=== PATIENT | male | born 1970 | race Caucasian/White ===

== ENCOUNTER 2020-07-09 12:36 | Emergency (ER) | payer OTHER ==
--- NOTE | 2020-07-09 13:32 | ER Document Report ---
ED Medical Screen (RME) - General Chief Complaint: Anxiety Stated Complaint: POSSIBLE PANIC/ANXIETY ATTACK Time Seen by Provider: 07/09/20 13:25 Information source: Patient Notes: Patient states that he woke up around 830 with a chest heaviness. Patient states he has had 2 episodes of lightheadedness throughout the day. Patient denies any nausea vomiting cough or cold symptoms. Patient denies any shortness of breath. Patient does have a history of anxiety although states that the symptoms seem more profound and he wanted to be certain he was not having any cardiac event. I have greeted and performed a rapid initial assessment of this patient. A comprehensive ED assessment and evaluation of the patient, analysis of test results and completion of the medical decision making process will be conducted by additional ED providers. Physical Exam - Vital signs Vitals: Temp Pulse Resp BP Pulse Ox 98.1 F 90 20 147/88 H 97 07/09/20 12:42 07/09/20 12:42 07/09/20 12:42 07/09/20 12:42 07/09/20 12:42 - Respiratory Respiratory status: No respiratory distress Breath sounds: Normal - Cardiovascular Rhythm: Regular Heart sounds: S1 appreciated, S2 appreciated Course - Vital Signs Vital signs: Temp Pulse Resp BP Pulse Ox 98.1 F 90 20 147/88 H 97 07/09/20 12:42 07/09/20 12:42 07/09/20 12:42 07/09/20 12:42 07/09/20 12:42
--- NOTE | 2020-07-09 14:15 | RADIOLOGY REPORT (SQ) ---
EXAM DESCRIPTION: CHEST SINGLE VIEW IMAGES COMPLETED DATE/TIME: 07/09/2020 11:07 am REASON FOR STUDY: chest heaviness COMPARISON: None. EXAM PARAMETERS: NUMBER OF VIEWS: One view. TECHNIQUE: Single frontal radiographic view of the chest acquired. RADIATION DOSE: NA LIMITATIONS: None. FINDINGS: LUNGS AND PLEURA: No opacities, masses or pneumothorax. No pleural effusion. MEDIASTINUM AND HILAR STRUCTURES: No masses. Contour normal. HEART AND VASCULAR STRUCTURES: Heart normal in size. Normal vasculature. BONES: No acute findings. HARDWARE: None in the chest. OTHER: No other significant finding. IMPRESSION: NO ACUTE RADIOGRAPHIC FINDING IN THE CHEST. TECHNICAL DOCUMENTATION: JOB ID: [id number] 2010 [employer]- All Rights Reserved Reading location - IP/workstation name: [email or web address]
[2020-07-09 14:34] LABS: ABSOLUTE EOSINOPHILS # (AUTO) 0.1 10^3/uL (0.0-0.6); ABSOLUTE LYMPHOCYTES (AUTO) 1.3 10^3/uL (0.5-4.7); ABSOLUTE MONOCYTES (AUTO) 0.7 10^3/uL (0.1-1.4); ABSOLUTE NEUT (AUTO) 5.2 10^3/uL (1.7-8.2); BASOPHILS % (AUTO) 0.4 % (0-2); EOSINOPHILS % (AUTO) 1.2 % (0-6); HEMOGLOBIN 18.4 g/dL (13.5-17.0); LYMPHOCYTES % (AUTO) 18.2 % (13-45); MEAN CORPUSCULAR HEMOGLOBIN 31.2 pg (27.0-33.4); MEAN CORPUSCULAR HGB CONC 34.1 g/dL (32.0-36.0); MEAN CORPUSCULAR VOLUME 92 fl (80-97); MONOCYTES % (AUTO) 9.1 % (3-13); PLATELET COUNT 227 10^3/uL (150-450); RED BLOOD COUNT 5.89 10^6/uL (4.35-5.55); RED CELL DISTRIBUTION WIDTH 13.6 % (11.5-14.0); SEGMENTED NEUTROPHILS % (AUTO) 71.1 % (42-78); TOTAL CELLS COUNTED % (AUTO) 100 %; WHITE BLOOD COUNT 7.2 10^3/uL (4.0-10.5)
[2020-07-09 14:48] LABS: ALBUMIN 4.6 g/dL (3.5-5.0); ALKALINE PHOSPHATASE 67 U/L (38-126); ANION GAP 10 (5-19); ASPARTATE AMINO TRANSFERASE 75 U/L (17-59); BILIRUBIN,DIRECT 0.1 mg/dL (0.0-0.4); BILIRUBIN,TOTAL 0.8 mg/dL (0.2-1.3); BLOOD UREA NITROGEN 10 mg/dL (7-20); CALCIUM 10.3 mg/dL (8.4-10.2); CARBON DIOXIDE 27 mmol/L (22-30); CHLORIDE 103 mmol/L (98-107); GLUCOSE 94 mg/dL (75-110); POTASSIUM 4.8 mmol/L (3.6-5.0); TOTAL PROTEIN 7.7 g/dL (6.3-8.2)
--- NOTE | 2020-07-09 17:15 | ER Document Report ---
ED Cardiac - General Chief Complaint: Chest Pain Stated Complaint: POSSIBLE PANIC/ANXIETY ATTACK Time Seen by Provider: 07/09/20 13:25 Mode of Arrival: Ambulatory Information source: Patient Notes: ED Medical Screen ([facility]) - General Chief Complaint: Anxiety Stated Complaint: POSSIBLE PANIC/ANXIETY ATTACK Time Seen by Provider: 07/09/20 13:25 Information source: Patient Notes: Patient states that he woke up around 830 with a chest heaviness. Patient states he has had 2 episodes of lightheadedness throughout the day. Patient d enies any nausea vomiting cough or cold symptoms. Patient denies any shortness of breath. Patient does have a history of anxiety although states that the symptoms seem more profound and he wanted to be certain he was not having any cardiac event. MY NOTES 50-year-old male arrives with his after having 4 hours of panic attack and lightheadedness throughout the day. He woke this morning around 0 830 with similar symptoms when he arose from the bed and felt very lightheaded. Patient has had weekly panic attacks since he was out of [facility] in 2009. He has been taking steroids testosterone and has to get blood pressures every time he gets a prescription for his testosterone. He has a mesomorphic body habitus with large muscles of arm forearm thighs legs. He has the body habitus of a weightlifter. He was running today with his when he slowed down and "was walking and hit a wall." His reports he just suddenly stopped and could not go any further. They decided to come to the hospital with a self diagnosis of panic attack with increased heart rate. Patient's hemoglobin is 18 and he reports he knows about this and saw [facility] [place] a few months ago and gave blood at that time. Patient reports his father who lives in [place] used to take blood pressure medicine. He is 82 years old[address] Patient sees Dr. Blake child advocate and last saw him in December of this year. Patient reports she has not had a panic attack in over 1 year. 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 - Related Data Allergies/Adverse Reactions: No Known Allergies Allergy (Unverified 07/09/20 15:35) Past Medical History - General Information source: Patient - Social History Smoking Status: Never Smoker Cigarette use (# per day): No Chew tobacco use (# tins/day): No Smoking Education Provided: No Frequency of alcohol use: None Drug Abuse: None Lives with: Family Family History: Reviewed & Not Pertinent Patient has suicidal ideation: No Patient has homicidal ideation: No Physical Exam - Vital signs Vitals: Temp Pulse Resp BP Pulse Ox 98.1 F 90 20 147/88 H 97 07/09/20 12:42 07/09/20 12:42 07/09/20 12:42 07/09/20 12:42 07/09/20 12:42 Interpretation: Hypertensive - General General appearance: Appears well, Alert - HEENT Head: Normocephalic, Atraumatic Eyes: Normal Pupils: PERRL - Respiratory Respiratory status: No respiratory distress Chest status: Nontender Breath sounds: Normal Chest palpation: Normal - Cardiovascular Rhythm: Regular Heart sounds: Normal auscultation Murmur: No - Abdominal Inspection: Normal Distension: No distension Bowel sounds: Normal Tenderness: Nontender Organomegaly: No organomegaly - Rectal Prostate: Other - Deferred - Genitourinary Scrotum: Other - Deferred - Back Back: Normal, Nontender - Extremities General upper extremity: Normal inspection, Nontender, Normal color, Normal ROM, Normal temperature General lower extremity: Normal inspection, Nontender, Normal color, Normal ROM, Normal temperature, Normal weight bearing. No: Levi's sign - Neurological Neuro grossly intact: Yes Cognition: Normal Orientation: AAOx4 Vivian Coma Scale Eye Opening: Spontaneous Vivian Coma Scale Verbal: Oriented Vivian Coma Scale Motor: Obeys Commands [place] Coma Scale Total: 15 Speech: Normal Motor strength normal: LUE, RUE, LLE, RLE Sensory: Normal - Psychological Associated symptoms: Normal affect, Normal mood - Skin Skin Temperature: Warm Skin Moisture: Dry Skin Color: Normal Course - Vital Signs Vital signs: Temp Pulse Resp BP Pulse Ox 98.1 F 90 16 132/93 H 80 L 07/09/20 12:42 07/09/20 12:42 07/09/20 21:22 07/09/20 21:22 07/09/20 20:00 - Laboratory Results Result Diagrams: 07/09/20 13:53 07/09/20 13:53 Laboratory Results Interpreted: 07/09/20 07/09/20 07/09/20 13:53 13:53 13:53 RBC 5.89 H Hgb 18.4 H Hct 54.0 H D-Dimer Calcium 10.3 H AST 75 H ALT 84 H Creatine Kinase 517 H Urine Ketones 07/09/20 07/09/20 13:53 21:15 RBC Hgb Hct D-Dimer 0.51 H Calcium AST ALT Creatine Kinase Urine Ketones 20 H Critical Laboratory Results Reviewed: Yes Attending or Supervising Physician who Reviewed Labs: JOSELYN SAGE JR - Radiology Results Critical Radiology Results Reviewed: Yes Attending or Supervising Physician who Reviewed Radiology: JOSELYN SAGE JR Discharge - Discharge Clinical Impression: Anxiety, Elevated creatine kinase, H/H increase, Urine ketones, D-dimer, elevated Thoracic aortic aneurysm (TAA) Qualifiers: Presence of rupture: without rupture Qualified Code(s): I71.2 - Thoracic aortic aneurysm, without rupture Condition: Stable Disposition: HOME, SELF-CARE Additional Instructions: Encourage fluids like water around half a liter per day; avoid heavy exercise for the next 48 hours. Follow-up with Dr. Monk child advocate ; he will call you tomorrow or you may call him on Saturday morning for office visit. Return to ER as needed. Referrals: DEVIN MONK MD [ACTIVE STAFF] - Follow up as needed
[2020-07-09 18:20] LABS: INTERNATIONAL RATION (INR) 0.97
[2020-07-09 18:23] LABS: D-DIMER 0.51 ug/mL (0.00-0.50)
--- NOTE | 2020-07-09 18:48 | EKG REPORT ---
SEVERITY:- ABNORMAL ECG - SINUS RHYTHM MULTIPLE VENTRICULAR PREMATURE COMPLEXES : Confirmed by: Poncho Metcalf MD 09-Jul-2020 18:47:49
--- NOTE | 2020-07-09 19:24 | RADIOLOGY REPORT (SQ) ---
EXAM DESCRIPTION: CT HEAD WITHOUT IMAGES COMPLETED DATE/TIME: 07/09/2020 4:01 pm REASON FOR STUDY: anxiety COMPARISON: None. TECHNIQUE: Axial images acquired through the brain without intravenous contrast. Images reviewed wi th bone, brain and subdural windows. Additional sagittal and coronal reconstructions were generated. Images stored on PACS. All CT scanners at this facility use dose modulation, iterative reconstruction, and/or weight based d osing when appropriate to reduce radiation dose to as low as reasonably achievable (ALARA). [facility]: Dose Right [facility]: CareDose [facility]: Dose Right [facility]: Teradose 4D [facility]: [employer] RADIATION DOSE: CT Rad equipment meets quality standard of care and radiation dose reduction techniq ues were employed. CTDIvol: 49.0 mGy. DLP: 1084 mGy-cm. mGy. LIMITATIONS: None. FINDINGS: VENTRICLES: Normal size and contour. CEREBRUM: No masses. No hemorrhage. No midline shift. No evidence for acute infarction. Normal gra y/white matter differentiation. No areas of low density in the white matter. CEREBELLUM: No masses. No hemorrhage. No alteration of density. No evidence for acute infarction. EXTRAAXIAL SPACES: Probable arachnoid cyst anterior to the left temporal lobe, probably an incidental finding, measuring 3.2 x 3.4 cm. No hemorrhage. ORBITS AND GLOBE: No intra- or extraconal masses. Normal contour of globe without masses. CALVARIUM: No fracture. PARANASAL SINUSES: Mild mucosal thickening inferior right maxillary sinus. SOFT TISSUES: No mass or hematoma. OTHER: No other significant finding. IMPRESSION: 1. No acute intracranial abnormality on noncontrast CT. 2. Probable recommend cysts left middle cranial fossa, likely an incidental finding. EVIDENCE OF ACUTE STROKE: NO. COMMENT: Quality ID # [id number]: Final reports with documentation of one or more dose reduction techniques (e.g., Automated exposure control, adjustment of the mA and/or kV according to patient size, use of iterative reconstruction technique) TECHNICAL DOCUMENTATION: JOB ID: [id number] [employer]- All Rights Reserved Reading location - IP/workstation name: [email or web address]
--- NOTE | 2020-07-09 19:29 | RADIOLOGY REPORT (SQ) ---
EXAM DESCRIPTION: CTA CHEST IMAGES COMPLETED DATE/TIME: 07/09/2020 4:01 pm REASON FOR STUDY: anxiety COMPARISON: Single-view chest same date TECHNIQUE: CT scan of the chest performed using helical scanning technique with dynamic intravenous contrast injection. Images reviewed with lung, soft tissue and bone windows. Reconstructed coronal and sagittal MPR images reviewed. Additional 3 dimensional post-processing performed to develop Maximal Intensity Projection images (WV P). All images stored on PACS. All CT scanners at this facility use dose modulation, iterative reconstruction, and/or weight based d osing when appropriate to reduce radiation dose to as low as reasonably achievable (ALARA). [facility]: Dose Right [facility]: CareDose [facility]: Dose Right [facility]: Teradose 4D [facility]: [employer] CONTRAST TYPE AND DOSE: contrast/concentration: Isovue 350.00 mmol/ml; Total Contrast Delivered: 63. 0 ml; Total Saline Delivered: 71.0 ml Contrast bolus adequate for pulmonary arteries and aorta. RENAL FUNCTION: Creatinine 0.9 RADIATION DOSE: CT Rad equipment meets quality standard of care and radiation dose reduction techniq ues were employed. CTDIvol: 9.4 - 14.6 mGy. DLP: 599 mGy-cm. . LIMITATIONS: Mild motion artifact. FINDINGS: LUNGS AND PLEURA: Minimal opacities in the right lower lobe probably due to motion artifac t and atelectasis. No consolidation. No pleural effusion or thickening. No pneumothorax. No suspi cious pulmonary nodule or mass lesion identified. AORTA AND GREAT VESSELS: Fusiform aneurysm of the ascending thoracic aorta measuring up to 4.2 cm. N o dissection. HEART: No pericardial effusion. Trace coronary artery calcifications. PULMONARY ARTERIES: No filling defect in the main, right or left pulmonary arteries. No filling defe cts in the visualized lobar, segmental or subsegmental pulmonary arteries. Some of the distal branch es are not optimally assessed due to motion artifact. HILAR AND MEDIASTINAL STRUCTURES: No identified masses or abnormal nodes. HARDWARE: None in the chest. UPPER ABDOMEN: No significant findings. Limited exam. THYROID AND OTHER SOFT TISSUES: No masses. No adenopathy. BONES: No acute or significant finding. 3D MIPS: Confirm above findings. OTHER: No other significant finding. IMPRESSION: 1. No visualized pulmonary embolism. 2. Mild fusiform aneurysm ascending aorta. No dissection. COMMENT: Quality ID # [id number]: Final reports with documentation of one or more dose reduction techniques (e.g., Automated exposure control, adjustment of the mA and/or kV according to patient size, use of iterative reconstruction technique) TECHNICAL DOCUMENTATION: JOB ID: [id number] 2010 [employer]- All Rights Reserved Reading location - IP/workstation name: [email or web address]
[2020-07-09] MEDS ORDERED: LORAZEPAM INJ 2 MG/1 ML VIAL IV ONE (20:08)
[2020-07-09] MEDS ORDERED: LABETALOL HCL INJ 20 MG/4 ML DISP.SYRIN IV ONE (20:08)
[2020-07-09 21:28] LABS: APPEARANCE,URINE CLEAR; BILIRUBIN,URINE NEGATIVE (NEGATIVE); COLOR,URINE YELLOW; GLUCOSE, URINE NEGATIVE (NEGATIVE); KETONES,URINE 20 mg/dL (NEGATIVE); LEUKOCYTE ESTERASE,URINE NEGATIVE (NEGATIVE); NITRITE,URINE NEGATIVE (NEGATIVE); PROTEIN,URINE NEGATIVE (NEGATIVE); URINE SPECIFIC GRAVITY 1.057; UROBILINOGEN,URINE NEGATIVE mg/dL (<2.0)
[2020-07-09 22:17] VITALS: BP 144/98
== END 2020-07-09 22:20 | disposition home or self-care (01) ==
LOC: ER 12:36
DX: F41.9 Anxiety disorder, unspecified (principal); I71.2 Thoracic aortic aneurysm, without rupture; R42 Dizziness and giddiness; R79.89 Other specified abnormal findings of blood chemistry; R09.89 Other specified symptoms and signs involving the circulatory and respiratory systems; Z79.899 Other long term (current) drug therapy
CPT/HCPCS: 93005; 99285; 96374; 96375; 36415; 82550; 83605; 83735; 84443; 85025; 85610; 80053; 81001; 84484; 85379; 71045; 70450; 71275; 93010; J3490; J2060